=== PATIENT | female | born 1955 | race Caucasian/White ===

== ENCOUNTER 2016-09-20 13:06 | Emergency (ER) | payer OTHER ==
[~2016-09-20] VITALS: Ht 167.6 cm; Wt 88.0 kg
[2016-09-20 16:14] VITALS: BP 124/71
== END 2016-09-20 16:15 | disposition home or self-care (01) ==
LOC: ER 13:15
DX: M25.561 Pain in right knee (principal); M25.512 Pain in left shoulder; I10 Essential (primary) hypertension; R06.02 Shortness of breath; E11.9 Type 2 diabetes mellitus without complications; F31.9 Bipolar disorder, unspecified; Z90.49 Acquired absence of other specified parts of digestive tract; Z98.890 Other specified postprocedural states
CPT/HCPCS: 71020; 73030; 99284; A4565